=== PATIENT | female | born 1945 | race Two or more races ===

== ENCOUNTER 2025-08-27 23:07 | Emergency (ER) | payer MEDICARE, OTHER ==
[~2025-08-27] VITALS: Ht 149.9 cm; Wt 54.4 kg
[2025-08-27 23:12] VITALS: TEMP 98.1
[2025-08-27] MEDS ORDERED: AMLODIPINE BESYLATE 5 MG TABLET ONE (23:58)
[2025-08-28] MEDS: AMLODIPINE BESYLATE 5 MG TABLET PO ONE
[2025-08-28 00:16] VITALS: BP 162/87; O2SAT 95
== END 2025-08-28 00:42 | disposition home or self-care (01) ==
LOC: ER 23:10
DX: I10 Essential (primary) hypertension (principal); F41.9 Anxiety disorder, unspecified; Z79.899 Other long term (current) drug therapy